=== PATIENT | male | born 2000 ===

== ENCOUNTER 2023-09-12 20:24 | Emergency (ER) | payer OTHER ==
[~2023-09-12] VITALS: Ht 165.1 cm; Wt 76.2 kg
[2023-09-12] MEDS ORDERED: LEVE500T9 PO (20:39)
[2023-09-12] MEDS ORDERED: levETIRAcetam IV 500 MG in IV DEXTROSE 5% 100 ML IV ONE (20:45)
[2023-09-12] MEDS ORDERED: levETIRAcetam 500 MG/5 ML VIAL IV ONE (21:12)
[2023-09-12 23:19] VITALS: BP 106/68; O2SAT 98
== END 2023-09-12 23:20 | disposition home or self-care (01) ==
LOC: ER 20:26
DX: G40.909 Epilepsy, unspecified, not intractable, without status epilepticus (principal)
CPT/HCPCS: 99284; 96365; J1953 ×2; A4606; A4663